=== PATIENT | female | born 2000 | race Two or more races ===

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

== ENCOUNTER 2021-03-22 12:40 | Emergency (ER) | payer MEDICAID ==
[~2021-03-22] VITALS: Ht 167.6 cm; Wt 98.0 kg
[2021-03-22 12:53] VITALS: BP 120/79
[2021-03-22] MEDS ORDERED: MAGNESIUM/ALUMINUM HYDROXIDE/SIMETHICONE 30ML UDC PO STA (13:54)
[2021-03-22] MEDS ORDERED: VISCOUS LIDOCAINE 2% 15 ML UDC PO STA (13:54)
[2021-03-22] MEDS ORDERED: ONDANSETRON 4MG ODT PO STA (13:54)
[2021-03-22] MEDS ORDERED: OMEPRAZOLE 20MG CAPSULE EXTENDED RELEASE PO ONE (14:00)
[2021-03-22] MEDS ORDERED: OMEPRAZOLE 20MG CAPSULE EXTENDED RELEASE PO NR (14:15)
[2021-03-22] MEDS ORDERED: OMEP20CA14 MT (15:20)
== END 2021-03-22 16:28 | disposition home or self-care (01) ==
LOC: ER 12:40
DX: K21.9 Gastro-esophageal reflux disease without esophagitis (principal)
CPT/HCPCS: 99284; Q0162; Z7610

== ENCOUNTER 2023-02-23 01:11 | Emergency (ER) | payer MEDICAID ==
[~2023-02-23] VITALS: Ht 167.6 cm; Wt 97.0 kg
[~2023-02-23 01:11] MED LIST: OMEP20CA14 MT
[2023-02-23 01:18] VITALS: BP 121/71; O2SAT 100
[2023-02-23 02:13] LABS: CLARITY URINE CLEAR (CLEAR); COLOR URINE YELLOW (YELLOW); GLUCOSE URINE NEGATIVE (NEGATIVE); KETONES URINE NEGATIVE (NEGATIVE); LEUKOCYTE ESTERASE URINE NEGATIVE (NEGATIVE); NITRITE URINE NEGATIVE (NEGATIVE); OCCULT BLOOD URINE NEGATIVE (NEGATIVE); PROTEIN URINE NEGATIVE (NEGATIVE); SPECIFIC GRAVITY URINE 1.014 (1.005-1.030)
[2023-02-23 02:49] LABS: UCG QC LOT# 693477; UCG SCREEN POSITIVE
[2023-02-23 03:00] LABS: BASOPHILS % 0.7 % (0.0-2.0); HEMATOCRIT. 32.1 % (36.0-48.0); LYMPHOCYTES % 23.2 % (20.0-50.0); MEAN CORPUSCULAR HEMOGLOBIN 33.9 pg (28.0-32.0); MEAN CORPUSCULAR HGB CONC 34.4 g/dL (31.0-37.0); MEAN CORPUSCULAR VOLUME 98.4 fL (81.0-99.0); MEAN PLATELET VOLUME 7.8 fl (7.4-10.4); MONOCYTES % 7.3 % (2.0-8.0); NEUTROPHILS % 66.8 % (40.0-76.0); PLATELET 258 x1000/uL (130-400); RED BLOOD CELL COUNT 3.26 mill/uL (4.2-5.4); RED CELL DISTRIBUTION WIDTH 12.1 % (11.6-14.6); WHITE BLOOD COUNT 9.8 x1000/uL (4.5-11.0)
[2023-02-23 03:08] LABS: CHLORIDE 107 mEq/L (98-107); INDEX HEMOLYSI 1 (1-3); INDEX ICTERIC 1 (1-4); INDEX LIPEMIC 1 (1-3); POTASSIUM 3.9 mEq/L (3.5-5.1); SODIUM 139 mEq/L (136-145)
[2023-02-23 03:30] LABS: ALANINE AMINOTRANSFERASE 27 IU/L (13-61); ALBUMIN 2.9 g/dL (3.4-5.0); ASPARTATE AMINOTRANSFERASE 14 IU/L (15-37); B-HCG QUANTITATIVE 14099 mIU/mL (<3); BILIRUBIN TOTAL 0.2 mg/dL (0.1-1.0); CALCIUM 8.2 mg/dL (8.5-10.1); CARBON DIOXIDE 26 mEq/L (21-32); CREATININE 0.7 mg/dL (0.6-1.3); GLUCOSE 86 mg/dL (70-105); PROTEIN TOTAL 6.7 g/dL (6.0-8.3); UREA NITROGEN BLOOD 14 mg/dL (7-21)
[2023-02-23] MEDS ORDERED: ACET-2708 MT (05:12)
[2023-02-23 06:55] VITALS: PULSE 70; RESP 16; TEMP 98.3
[2023-02-25 04:08] LABS: CHLAMYDIA TRACHOMATIS NAA Negative (Negative); NEISSERIA GONORRHOEAE NAA Negative (Negative)
== END 2023-02-23 06:57 | disposition home or self-care (01) ==
LOC: ER 01:11
DX: O20.0 Threatened abortion (principal); Z3A.18 18 weeks gestation of pregnancy
CPT/HCPCS: 87491; 87591; 80053; 81003; 81025; 84702; 85025; 86850; 86900; 86901; 87210; 36415; 76805; 76817; 76810; 99284; Z7610